=== PATIENT | female | born 1950 | race Caucasian/White ===

== ENCOUNTER 2021-09-28 10:12 | Emergency (ER) | payer MEDICARE ==
[~2021-09-28] VITALS: Ht 170.2 cm; Wt 104.3 kg
[~2021-09-28 10:12] MED LIST: CALC-1180 PO; DARI15TA PO; GABA800T11 PO; IRBE150T28 PO; LAMO150T2 PO; MAGN64TA7 PO; MULT-594 PO; SOLI10TA2 PO; TERA5CAP4 PO; TRIA1CAP6 PO; TRIA1TAB98 PO
--- NOTE | 2021-09-28 10:28 | NUR ---
received pt 70 yrs female wahing in from home s/p fell down yestrday c/o pain on lt shouder unable to move respiration spont and easy
--- NOTE | 2021-09-28 10:30 | NUR ---
resting at this time
--- NOTE | 2021-09-28 10:40 | NUR ---
SEEN BY DR. LOPEZ
[2021-09-28] MEDS ORDERED: ACETAMINOPHEN 325 MG TABLET ONE (10:47)
[2021-09-28] MEDS: ACETAMINOPHEN 325 MG TABLET PO ONE (10:48)
--- NOTE | 2021-09-28 10:54 | NUR ---
X RAY ON LT SHOUDER DONE AT BED SIDE
--- NOTE | 2021-09-28 11:20 | NUR ---
lt shoulder pain when movment
[2021-09-28] MEDS ORDERED: NAPR-1164 PO ×2 (11:45→11:57)
--- NOTE | 2021-09-28 12:05 | NUR ---
DR. REGINE GARZA ABOUT BP 171/105 [facility] pt did not take mediction tody
--- NOTE | 2021-09-28 12:06 | NUR ---
d/c instraction given to fully and verblized understood d/c home with rx and fallow up care
--- NOTE | 2021-09-28 12:13 | NUR ---
d/c home with lt shoulder immplizzer
[2021-09-28 12:39] VITALS: BP 171/105
== END 2021-09-28 12:40 | disposition home or self-care (01) ==
LOC: ER 10:17
DX: S42.002A Fracture of unspecified part of left clavicle, initial encounter for closed fracture (principal); I10 Essential (primary) hypertension; Z88.8 Allergy status to other drugs, medicaments and biological substances; Z79.899 Other long term (current) drug therapy; W01.0XXA Fall on same level from slipping, tripping and stumbling without subsequent striking against object, initial encounter; Y93.89 Activity, other specified; Y92.009 Unspecified place in unspecified non-institutional (private) residence as the place of occurrence of the external cause; Y99.8 Other external cause status
CPT/HCPCS: 71045-TC; 73030-TC; 73060-TC

== ENCOUNTER 2021-10-31 18:46 | Emergency (ER) | payer MEDICARE ==
[~2021-10-31] VITALS: Ht 175.3 cm; Wt 107.5 kg
[~2021-10-31 18:46] MED LIST changes: +NAPR-1164 PO
[2021-10-31 19:02] VITALS: BP 133/107
[2021-10-31 20:05] LABS: BASOPHILS % (AUTO) 0.2 % (0.0-2.0); EOSINOPHILS % (AUTO) 0.1 % (0.0-6.0); HEMATOCRIT 46 % (33-45); HEMOGLOBIN 15.1 g/dL (11.5-14.8); LYMPHOCYTES # (AUTO) 0.5 K/uL (0.8-4.8); LYMPHOCYTES % (AUTO) 3.9 % (20.0-44.0); MEAN CORPUSCULAR HGB CONC 33 g/dl (31.0-36.0); MEAN CORPUSCULAR VOLUME 92 fL (82-100); MONOCYTES # (AUTO) 0.2 K/uL (0.1-1.30); MONOCYTES % (AUTO) 1.8 % (2.0-12.0); NEUTROPHILS # (AUTO) 12.2 K/uL (1.8-8.9); PLATELET COUNT (AUTO) 146 K/uL (150-450)
--- NOTE | 2021-10-31 20:26 | NUR ---
DR MARTINEZ PAGED PER DR WILLIAMSON.
--- NOTE | 2021-10-31 20:39 | NUR ---
Patient discharged to home in stable condition. Written and verbal after care instructions given. Patient verbalizes understanding of instruction.
== END 2021-10-31 21:00 | disposition home or self-care (01) ==
LOC: ER 20:59
DX: L76.22 Postprocedural hemorrhage of skin and subcutaneous tissue following other procedure (principal); I10 Essential (primary) hypertension; Z88.8 Allergy status to other drugs, medicaments and biological substances; Z79.899 Other long term (current) drug therapy
CPT/HCPCS: 36415; 85025-TC; 85730-TC

== ENCOUNTER 2022-05-28 22:30 | Inpatient (IN) | payer MEDICARE ==
[~2022-05-28] VITALS: Ht 175.3 cm; Wt 111.6 kg
--- NOTE | 2022-05-28 22:44 | NUR ---
To ER bed 13, [id number] from home s/p trip and fall c/o of generalized weakness, aaox4, breathing even and non labored, connected to monitor, awaiting md orders
[2022-05-28 23:50] LABS: BASOPHILS # (AUTO) 0.1 K/uL (0.0-0.2); BASOPHILS % (AUTO) 0.5 % (0.0-2.0); HEMATOCRIT 45 % (33-45); HEMOGLOBIN 14.6 g/dL (11.5-14.8); LYMPHOCYTES # (AUTO) 0.7 K/uL (0.8-4.8); LYMPHOCYTES % (AUTO) 6.3 % (20.0-44.0); MEAN CORPUSCULAR HGB CONC 32 g/dl (31.0-36.0); MEAN CORPUSCULAR VOLUME 92 fL (82-100); MONOCYTES # (AUTO) 0.6 K/uL (0.1-1.30); MONOCYTES % (AUTO) 6.1 % (2.0-12.0); NEUTROPHILS # (AUTO) 9.1 K/uL (1.8-8.9); NEUTROPHILS % (AUTO) 87.1 % (43.0-81.0); PLATELET COUNT (AUTO) 116 K/uL (150-450); RED BLOOD CELL COUNT(AUTO) 4.92 MIL/uL (4.0-5.2); WHITE BLOOD COUNT (AUTO) 10.5 K/uL (4.3-11.0)
--- NOTE | 2022-05-28 23:55 | NUR ---
URINE COLLECTED AND SENT TO LAB
[2022-05-29 00:04] LABS: CALCIUM, SERUM 9.1 mg/dL (8.5-10.1); CARBON DIOXIDE 28 mmol/L (21-32); CHLORIDE 100 mmol/L (98-107); CREATININE 1.3 mg/dL (0.6-1.3); GLUCOSE 129 mg/dL (74-106); POTASSIUM 3.7 mmol/L (3.5-5.1); SODIUM SERUM 136 mmol/L (136-145); UREA NITROGEN, BLOOD 18 mg/dL (7-18)
[2022-05-29 00:14] LABS: ALANINE AMINOTRANSFERASE 14 U/L (12-78); ALBUMIN 3.7 g/dL (3.4-5.0); ALKALINE PHOSPHATASE 73 U/L (46-116); ASPARTATE AMINOTRANSFERASE 17 U/L (15-37); BILIRUBIN,DIRECT 0.2 mg/dL (0.0-0.2); BILIRUBIN,TOTAL 1.1 mg/dL (0.2-1.0); TOTAL PROTEIN, SERUM 6.2 g/dL (6.4-8.2)
--- NOTE | 2022-05-29 00:18 | NUR ---
TROP 60
[2022-05-29] MEDS ORDERED: IV NS 0.9% 1,000 ML BAG IV ONE (01:00)
[2022-05-29 01:27] LABS: BILIRUBIN,URINE NEGATIVE (NEGATIVE); COLOR,URINE YELLOW (YELLOW); LEUKOCYTE ESTERASE ,URINE 3+ (NEGATIVE); NITRITE, URINE NEGATIVE (NEGATIVE); PH,URINE 6.5 (5.0-8.0); PROTEIN,URINE NEGATIVE (NEGATIVE); UGLUCOSE NEGATIVE (NEGATIVE); UROBILINOGEN,URINE 0.2 EU/dL (0.2)
[2022-05-29 01:33] LABS: BACTERIA,URINE Rare /HPF (None Seen); SQUAMOUS EPITHELIAL CELL,UR Few /HPF (None Seen)
[2022-05-29] MEDS ORDERED: CEFTRIAXONE 1 G in IV D5W 50 ML IV ONE (02:00)
[2022-05-29] MEDS ORDERED: CEFTRIAXONE 1GM BAG (ER ONLY) 50 ML IV ONE (02:06)
[2022-05-29] MEDS ORDERED: ONDANSETRON HCL/PF 4 MG/2 ML VIAL IVP PRN (04:30)
[2022-05-29] MEDS ORDERED: Z GUARD REMEDY 4 OZ OINT TP PRN (04:30)
[2022-05-29] MEDS ORDERED: MORPHINE SULFATE INJ 2 MG/ML DISP.SYRIN IV PRN (04:30)
[2022-05-29] MEDS ORDERED: MAG HYDROX/AL HYDROX/SIMETH 30 ML UDC PO PRN (04:30)
[2022-05-29] MEDS ORDERED: IV NS 0.9% 1,000 ML IV PRN (04:30)
[2022-05-29] MEDS ORDERED: ACETAMINOPHEN 325 MG TABLET PO PRN (04:30)
[2022-05-29] MEDS ORDERED: MAGNESIUM HYDROXIDE 30 ML UDC PO PRN (04:30)
[2022-05-29] MEDS ORDERED: HYDROCODONE/APAP 5/325MG TABLET PO PRN (04:30)
[2022-05-29] MEDS ORDERED: TEMAZEPAM 15 MG CAPSULE PO PRN (04:30)
--- NOTE | 2022-05-29 05:28 | NUR ---
REPORT GIVEN TO APOLONIA BRUCE FOR KARINA
[2022-05-29 06:15] LABS: MAGNESIUM 1.9 mg/dL (1.8-2.4); PHOSPHORUS 2.3 mg/dL (2.5-4.9)
--- NOTE | 2022-05-29 06:20 | NUR ---
DOBIE WORKER NOTES: REPORT RECEIVED FROM VIRGILIO BRUCE. PT TRANSFERRED TO [facility] FROM ER VIA [facility]. PLACED IN ROOM 109-1. PT AWAKE, ALERT/ORIENTED X4 AND VERBALLY RESPONSIVE. ON ROOM AIR AND PT TOLERATED WELL. O2 SAT 91%. IV ACCESS ON RFA#20G INTACT AND PATENT. NO S/S OF INFILTRATIONS. NO C/O PAIN OR DISCOMFORT. NO ACUTE DISTRESS. ABLE TO WALK WITH ASSIST. ALL SAFETY MEASURES IN PLACE. BED IN LOWEST POSITION AND LOCKED. SIDE RAILS UP X3, PLACE CALL LIGHT WITH IN REACH. WILL ENDORSE TO MORNING SHIFT NURSE.
[2022-05-29 06:23] LABS: THYROID STIMULATING HORMONE 0.763 uIU/mL (0.358-3.74)
--- NOTE | 2022-05-29 06:58 | NUR ---
RN NOTES: ASSESSED WHOLE BODY. NO OPEN SKIN NOTED. SKIN DRY AND CLEAN TO TOUCH.
--- NOTE | 2022-05-29 07:15 | NUR ---
RN OPEN NOTE PT AWAKE, ALERT/ORIENTED X4 AND VERBALLY RESPONSIVE. ON ROOM AIR AND PT TOLERATED WELL. O2 SAT 91%. IV ACCESS ON RFA#20G INTACT AND PATENT. NO S/S OF INFILTRATIONS. NO C/O PAIN OR DISCOMFORT. NO ACUTE DISTRESS. ABLE TO WALK WITH ASSIST. ALL SAFETY MEASURES IN PLACE. BED IN LOWEST POSITION AND LOCKED. SIDE RAILS UP X3, PLACE CALL LIGHT WITH IN REACH. WILL CONTINUE TO MONITOR
[2022-05-29] MEDS ORDERED: PANTOPRAZOLE 40 MG TABLET.DR PO SCH (07:30)
[2022-05-29 08:00] VITALS: BP 129/87
[2022-05-29] MEDS ORDERED: ENOXAPARIN SODIUM 40 MG/0.4 ML DISP.SYRIN SQ SCH (09:00)
[2022-05-29] MEDS ORDERED: ASPIRIN 81 MG TAB.CHEW PO SCH (09:00)
[2022-05-29] MEDS ORDERED: ENOXAPARIN SODIUM 60 MG/0.6 ML DISP.SYRIN SQ ONE (10:00)
[2022-05-29] MEDS ORDERED: ATORVASTATIN 10 MG TABLET PO SCH (10:00)
[2022-05-29] MEDS ORDERED: NEUTRA PHOS 1 POWD.PACKET PO SCH (10:00)
[2022-05-29] MEDS ORDERED: CT SWABBABLE VALVE TRANS SET 1 EA INFUS.SET MC ONE (11:10)
[2022-05-29] MEDS ORDERED: NITROGLYCERIN 0.4 MG/TAB BOTTLE ONE (11:10)
[2022-05-29] MEDS ORDERED: IOHEXOL-350 100 ML VIAL IV ONE (11:10)
[2022-05-29] MEDS ORDERED: IV NS 0.9% 250 ML IV ONE (11:10)
[2022-05-29] MEDS ORDERED: METOPROLOL TARTRATE INJ 5 MG/5 ML AMPUL ONE (11:10)
[2022-05-29] MEDS: METOPROLOL TARTRATE INJ 5 MG/5 ML AMPUL IVP PRN ×4 (11:20→11:35)
[2022-05-29] MEDS ORDERED: NITROGLYCERIN 0.4 MG/TAB BOTTLE SL ONE (11:30)
[2022-05-29] MEDS ORDERED: OXYB15TA19 PO (11:43)
[2022-05-29 12:00] VITALS: BP 125/75
[2022-05-29] MEDS ORDERED: METOPROLOL TARTRATE 50 MG TABLET PO SCH (12:00)
[2022-05-29 16:00] VITALS: BP 138/78
[2022-05-29] MEDS ORDERED: ATOR20TA PO (16:22)
[2022-05-29] MEDS ORDERED: METO-357 PO (16:22)
--- NOTE | 2022-05-29 18:06 | NUR ---
RN NOTE PATIENT IS AT STABLE HEALTH CONDITION , NO FRACTURE S/P FALL AT HOME .DISCHARGE INSTRUCTIONS PROVIDED TO THE PATIENT VERBALLY AND IN WRITTEN. PATIENT VERBALIZED UNDERSTANDING .
[2022-05-29] MEDS ORDERED: ENOXAPARIN SODIUM 100 MG/ML DISP.SYRIN SQ SCH (21:00)
[2022-05-30] MEDS ORDERED: CEFTRIAXONE 1 G in IV D5W 50 ML IV SCH (09:00)
== END 2022-05-29 18:32 | disposition home or self-care (01) | DRG 73 ==
LOC: ER 22:32 → TELE1 05-29 05:10
PROVIDERS: ADMIT Legal Medicine; ATTEND Legal Medicine
DX: G90.8 Other disorders of autonomic nervous system (principal); I21.A1 Myocardial infarction type 2; N39.0 Urinary tract infection, site not specified; Z66 Do not resuscitate; G35 Multiple sclerosis; W01.0XXA Fall on same level from slipping, tripping and stumbling without subsequent striking against object, initial encounter; I10 Essential (primary) hypertension; Y92.009 Unspecified place in unspecified non-institutional (private) residence as the place of occurrence of the external cause; G62.9 Polyneuropathy, unspecified; Z98.890 Other specified postprocedural states; Z96.698 Presence of other orthopedic joint implants; Z88.8 Allergy status to other drugs, medicaments and biological substances; Z79.899 Other long term (current) drug therapy; G89.29 Other chronic pain; M19.90 Unspecified osteoarthritis, unspecified site; E78.5 Hyperlipidemia, unspecified; E83.39 Other disorders of phosphorus metabolism
CPT/HCPCS: 36415; 71045-TC; 75574; 80048-TC; 80061-TC; 80076-TC; 81001; 83735-TC; 84100-TC; 84443-TC; 84484-TC; 85025-TC; 87081-TC; 87086-TC; 93307-TC; 97112-TC; 97116-TC; 97530-TC; A4223; G0378; J0696; J1650; J3490; J7030; J7050; J7060; Q9967

== ENCOUNTER 2023-04-22 13:46 | Emergency (ER) | payer MEDICARE ==
[~2023-04-22] VITALS: Ht 175.3 cm; Wt 99.8 kg
[~2023-04-22 13:46] MED LIST changes: +ATOR20TA PO; -DARI15TA PO; +METO-357 PO; -NAPR-1164 PO; +OXYB15TA19 PO; -SOLI10TA2 PO; -TERA5CAP4 PO; -TRIA1TAB98 PO
[2023-04-22 15:07] LABS: BASOPHILS # (AUTO) 0.1 K/uL (0.0-0.2); BASOPHILS % (AUTO) 0.8 % (0.0-2.0); EOSINOPHILS # (AUTO) 0.1 K/uL (0.0-0.7); EOSINOPHILS % (AUTO) 1.7 % (0.0-6.0); HEMATOCRIT 44 % (33-45); HEMOGLOBIN 14.3 g/dL (11.5-14.8); MEAN CORPUSCULAR HEMOGLOBIN 28 PG (26.0-33.0); MEAN CORPUSCULAR HGB CONC 33 g/dl (31.0-36.0); MEAN CORPUSCULAR VOLUME 87 fL (82-100); MONOCYTES # (AUTO) 0.6 K/uL (0.1-1.30); MONOCYTES % (AUTO) 7.7 % (2.0-12.0); NEUTROPHILS # (AUTO) 5.4 K/uL (1.8-8.9); NEUTROPHILS % (AUTO) 75.8 % (43.0-81.0); PLATELET COUNT (AUTO) 177 K/uL (150-450); RED BLOOD CELL COUNT(AUTO) 5.04 MIL/uL (4.0-5.2); RED CELL DISTRIBUTION WIDTH 14.4 % (11.5-15.0); WHITE BLOOD COUNT (AUTO) 7.1 K/uL (4.3-11.0)
[2023-04-22 15:26] LABS: CALCIUM, SERUM 9.4 mg/dL (8.5-10.1); CARBON DIOXIDE 30 mmol/L (21-32); CHLORIDE 101 mmol/L (98-107); CREATININE 1.2 mg/dL (0.6-1.3); GLUCOSE 97 mg/dL (74-106); POTASSIUM 3.8 mmol/L (3.5-5.1); SODIUM SERUM 137 mmol/L (136-145); UREA NITROGEN, BLOOD 20 mg/dL (7-18)
[2023-04-22 15:31] LABS: INR 1.07 (0.91-1.10)
[2023-04-22 15:39] LABS: NT-PRO BNP 931 pg/mL (0-125)
[2023-04-22 17:26] VITALS: BP 150/100; TEMP 98.3; O2SAT 99
== END 2023-04-22 17:26 | disposition home or self-care (01) ==
LOC: ER 13:52
DX: L53.9 Erythematous condition, unspecified (principal); I10 Essential (primary) hypertension; Z88.8 Allergy status to other drugs, medicaments and biological substances; Z79.899 Other long term (current) drug therapy
CPT/HCPCS: 36415; 71045-TC; 80048-TC; 83880; 84484-TC; 85025-TC; 85730-TC; 93970-TC

== ENCOUNTER 2023-04-23 10:22 | Emergency (ER) | payer MEDICARE ==
[~2023-04-23] VITALS: Ht 175.3 cm; Wt 99.8 kg
[2023-04-23 10:29] VITALS: BP 141/102; TEMP 97.9
[2023-04-23 11:26] VITALS: O2SAT 97
== END 2023-04-23 11:27 | disposition home or self-care (01) ==
LOC: ER 10:28
DX: I73.9 Peripheral vascular disease, unspecified (principal); L53.9 Erythematous condition, unspecified; I10 Essential (primary) hypertension; E78.5 Hyperlipidemia, unspecified; Z96.641 Presence of right artificial hip joint; Z88.8 Allergy status to other drugs, medicaments and biological substances; Z79.899 Other long term (current) drug therapy